=== PATIENT | female | born 1975 | race Caucasian/White ===

== ENCOUNTER 2016-08-26 10:06 | Day surgery (SDC) | payer MEDICAID ==
[2016-08-26] MEDS ORDERED: ceFAZolin 2 GM/DEXTROSE 100 ML IV ONE (10:27)
[2016-08-26] MEDS ORDERED: LR 1,000 ML IV SCH (10:27)
[2016-08-26] MEDS ORDERED: LIDOCAINE 1% 2 ML INJ ONE (10:33)
[2016-08-26] MEDS ORDERED: CEFAZOLIN 2 GM/DEXTROSE/100 ML BAG IV ONE (10:33)
[2016-08-26] MEDS ORDERED: MIDAZOLAM 2 MG/2 ML VIAL IVP ONE (10:44)
[2016-08-26] MEDS ORDERED: NALOXONE HCL 0.4 MG/ML INJ IVP PRN (10:45)
[2016-08-26] MEDS ORDERED: ONDANSETRON 4 MG/2 ML VIAL IVP PRN (10:45)
[2016-08-26] MEDS ORDERED: DEXAMETHASONE 4 MG/ML VIAL IVP PRN (10:45)
[2016-08-26] MEDS ORDERED: LR 500 ML IV PRN (10:45)
[2016-08-26] MEDS ORDERED: MEPERIDINE 25 MG/ML SYR IVP PRN (10:45)
[2016-08-26] MEDS ORDERED: HYDROmorphONE/DILAUDID 1 MG/ML SYR IVP PRN (10:45)
[2016-08-26] MEDS ORDERED: BUPIVACAINE 0.5% 30 ML SDV ONE (10:51)
--- NOTE | 2016-08-26 11:18 | PDHPUP ---
History & Physical Update H&P update statement: This history and physical update is based on an assessment of the patient which was completed after admission or registration (within 24 hours), but prior to the surgery/procedure. H&P changes: newer defect by umbilicus
--- NOTE | 2016-08-26 11:31 | PDANEPAE ---
ANE History of Present Illness 41 year old healthy patient. She had an abdominoplasty performed at an outside facility which is currently infected. She has well controlled hypertension and is on metoprolol 25 mg BID. Otherwise she is health. ANE Past Medical History - Cardiovascular History Hx Hypertension: Yes Hx Arrhythmias: No Hx Chest Pain: No Hx Coronary Artery / Peripheral Vascular Disease: No Hx CHF / Valvular Disease: No Hx Palpitations: No - Pulmonary History Hx COPD: No Hx Asthma/Reactive Airway Disease: No Hx Recent Upper Respiratory Infection: No Hx Oxygen in Use at Home: No - Neurologic History Hx Cerebrovascular Accident: No Hx Seizures: No Hx Dementia: No - Endocrine History Hx Diabetes: No - Renal History Hx Renal Disorders: No - Liver History Hx Hepatic Disorders: No - Neurological & Psychiatric Hx Hx Neurological and Psychiatric Disorders: No - Cancer History Hx Cancer: No - Congenital Disorder History Hx Congenital Disorders: No - GI History Hx Gastrointestinal Disorders: No - Chronic Pain History Chronic Pain: No ANE Review of Systems - Exercise capacity METS (RN): 6 METS ANE Patient History - Allergies Allergies/Adverse Reactions: No Known Allergies Allergy (Verified 08/25/16 15:14) - Home Medications Home Medications: IBUPROFEN 08/25/16 [Last Taken Unknown] Metoprolol Tartrate 08/25/16 [Last Taken 08/25/16] - NPO status NPO Since - Liquids (Date): 08/25/16 NPO Since - Liquids (Time): 19:00 NPO Since - Solids (Date): 08/25/16 NPO Since - Solids (Time): 19:00 - Smoking Hx Smoking Status: Never smoked - Family Anes Hx Family Hx Anesthesia Complications: none ANE Labs/Vital Signs - Vital Signs Blood Pressure: 115/80 Heart Rate: 58 Respiratory Rate: 14 O2 Sat (%): 94 Height: 160.02 cm Weight: 78.925 kg ANE Physical Exam - Airway Neck exam: FROM Mallampati Score: Class 1 Mouth exam: poor dentition - Pulmonary Pulmonary: no respiratory distress - Cardiovascular Cardiovascular: regular rate and rhythym - ASA Status ASA Status: II
[2016-08-26] MEDS ORDERED: fentaNYL 100 MCG/2 ML INJ ONE ×2 (11:33→13:05)
[2016-08-26] MEDS ORDERED: PROPOFOL 200 MG/20 ML VIAL ONE (11:33)
--- NOTE | 2016-08-26 12:52 | POSTOPPROG ---
Post Op Note Date of Operation: 08/26/16 Surgeon: Anais Patel Supervisor White Sugar: emeterio Anesthesiologist: julio Anesthesia: GET(General Endotracheal) Pre-op Diagnosis: abdominal wound dehiscence Post-op Diagnosis: same Indication: 41 year old woman s/p abdomioplasty with dehiscence Procedure: debridement skin soft tissue and fascia 6x15x2.5 undermine 7/3 cm Findings: necrotic fat Inf/Abcess present in the surg proc area at time of surgery?: Yes Depth: Deep Incisional (Fascial) EBL: Minimal Specimen(s): skin soft tissue
[2016-08-26] MEDS: fentaNYL 100 MCG/2 ML INJ IVP PRN ×3 (13:06→13:26)
--- NOTE | 2016-08-26 13:23 | POSTANESTH ---
Post Anesthetic Evaluation Cardiovascular Status: Normal, Stable Respiratory Status: Normal, Stable Level of Consciousness/Mental Status: Can Participate in Eval Pain Control: Adequate, Prn Tx Ordered Nausea/Vomiting Control: Adequate, Prn Tx Ordered Complications Possibly Related to Anesthesia: None Noted
[2016-08-26] MEDS ORDERED: OXYCODONE/APAP 5/325 TAB ONE ×3 (13:39→15:12)
--- NOTE | 2016-08-26 13:41 | GOP ---
[f rep st] OPERATIVE REPORT DATE OF OPERATION: 08/26/2016 SURGEON: Anais Patel MD HOME EXTENSION AGENT: Alison Mcallister, EWA ANESTHESIA: General. ANESTHESIOLOGIST: Lesley Brar MD. PREOPERATIVE DIAGNOSIS: Abdominal wound dehiscence, status post abdominoplasty. POSTOPERATIVE DIAGNOSIS: Abdominal wound dehiscence, status post abdominoplasty. PROCEDURE PERFORMED: Performed debridement of skin, soft tissue, and fascia. FINDINGS: The wound measured 6 x 15 x 2.5 cm and undermines 7 cm to 3 cm from the 9 to 3 o'clock position. There was necrotic thickened tissue in the wound. SPECIMENS: Microbiology and pathology. INDICATIONS: The patient is a 41-year-old woman, who went to [facility] for an abdominoplasty. The wound dehisced and is infected. DESCRIPTION OF PROCEDURE: The patient is brought into the operating room, placed supine on the table, and general anesthesia was administered. Her abdomen was prepped and draped in the usual sterile fashion. I first aspirated fluid from the deep portion of the wound and sent this for microbiology. I then excised hard necrotic fat from the wound. When I got to healthy fat, the wound measured 6 x 15 x 2.5 cm. I then debrided the fascia with a curette. A wound VAC was placed. I also performed a small debridement by her umbilicus. I placed Hydrofera Blue. The wound VAC is at 125 mmHg. She was awakened in the operating room, extubated, transferred to PACU in stable condition. /[id number]/MODL MTDD
[2016-08-26] MEDS: OXYCODONE/APAP 5/325 TAB PO PRN ×3 (13:43→15:14)
[2016-08-26 14:48] VITALS: O2SAT 96
[2016-08-26 15:38] VITALS: BP 107/74; PULSE 56; RESP 20; TEMP 97.5
== END 2016-08-26 15:52 | disposition home or self-care (01) ==
LOC: FSGY 10:06
PROVIDERS: ATTEND Surgery
PROC: 0JB80ZZ Excision of Abdomen Subcutaneous Tissue and Fascia, Open Approach (ICD-10-PCS; principal; 2016-08-26 11:45)
PROC: 2W13X6Z Compression of Abdominal Wall using Pressure Dressing (ICD-10-PCS; principal; 2016-08-26 11:45)
DX: T81.31XA Disruption of external operation (surgical) wound, not elsewhere classified, initial encounter (principal); T81.4XXA Infection following a procedure, initial encounter; Z98.84 Bariatric surgery status; B95.61 Methicillin susceptible Staphylococcus aureus infection as the cause of diseases classified elsewhere
CPT/HCPCS: J0690; J2250; J2704; J3010